=== PATIENT | female | born 1970 | race African-American/Black ===

== ENCOUNTER 2018-01-15 16:36 | Emergency (ER) | payer SELFPAY ==
[2018-01-15 18:03] LABS: #Lymphocytes 1.1 thou/uL (1.20-3.40); #Monocytes 0.8 thou/uL (0.11-0.59); #Neutrophils 6.9 thou/uL (1.40-6.50); %Basophils 0.5 % (0.0-1.0); %Eosinophils 0.5 % (0.0-10.0); %Lymphocytes 12.8 % (21.0-51.0); %Monocytes 8.8 % (0.0-10.0); %Neutrophils 77.4 % (42.0-75.0); Hemoglobin 11.7 g/dL (12.0-16.0); Mean Corpuscular HGB CONC 33.6 g/dL (32.0-36.0); Mean Corpuscular Hemoglobin 29.8 pg (27.0-31.0); Mean Corpuscular Volume 88.7 fl (81.0-99.0); Mean Platelet Volume 7.7 fL (7.4-10.4); Platelet Count 341 thou/uL (130-400); RBC Distribution Width 15.2 % (11.5-14.5); Red Blood Cell (RBC) Count 3.92 mill/uL (4.20-5.40)
[2018-01-15 18:19] LABS: ALT (SGPT) 11 U/L (8-55); AST (SGOT) 59 U/L (5-34); Albumin 2.4 g/dL (3.5-5.0); Alkaline Phosphatase 226 U/L (40-150); Anion Gap 13 mmol/L (10-20); BUN (Urea Nitrogen) 9 mg/dL (7.0-18.7); Bilirubin, Total 1.2 mg/dL (0.2-1.2); Calc. Creatinine Clearance 0 mL/min (70-130); Calcium 8.4 mg/dL (7.8-10.44); Carbon Dioxide 34 mmol/L (22-29); Chloride 88 mmol/L (98-107); Estimated GFR-MDRD Greater than 90; Globulin 4.9 g/dL (2.4-3.5); Glucose 141 mg/dL (70-105); Lipase 12 U/L (8-78); Protein, Total 7.3 g/dL (6.0-8.3); Sodium 132 mmol/L (136-145)
[2018-01-15 18:38] LABS: Bilirubin Small (Negative); Blood, Urine Negative (Negative); Clarity CLEAR (Clear); Glucose, Urine (Dipstick) Negative (Negative); Leukocyte Small (Negative); Nitrite Negative (Negative); Protein, Urine (Dipstick) Negative (Neg-Trace); Specific Gravity, Urine 1.017 (1.002-1.036)
[2018-01-15 18:40] LABS: Bacteria/HPF None Seen HPF (None Seen); Hyaline Casts/LPF 4-6 HYALINE CAST LPF (0-3 Hyaline); Pathc Cast-AUWi Flag 0.43 (0-2.49); Squamous Epithelial 0-3 HPF (0-3); WBC/HPF 0-3 HPF (0-3)
[2018-01-15 18:46] LABS: Urobilinogen > or = 8.0 mg/dL (0.2-1.0)
== END 2018-01-15 22:05 | disposition home or self-care (01) ==
LOC: ERS 16:36
DX: K66.8 Other specified disorders of peritoneum (principal); K74.60 Unspecified cirrhosis of liver; Z79.899 Other long term (current) drug therapy
CPT/HCPCS: 36415; 80053; 81003; 81015; 82140; 83690; 85025; 99284

== ENCOUNTER 2018-07-22 09:43 | Day surgery (SDC) | payer MEDICAID ==
[2018-07-22 10:02] LABS: #Basophils 0.1 thou/uL (0.0-0.2); #Eosinphils 0.1 thou/uL (0.0-0.7); #Lymphocytes 1.3 thou/uL (1.20-3.40); #Monocytes 0.4 thou/uL (0.11-0.59); #Neutrophils 3.2 thou/uL (1.40-6.50); %Basophils 1.3 % (0.0-1.0); %Eosinophils 2.4 % (0.0-10.0); %Monocytes 8.2 % (0.0-10.0); Hemoglobin 11.1 g/dL (12.0-16.0); Mean Corpuscular Hemoglobin 29.7 pg (27.0-31.0); Mean Corpuscular Volume 92.7 fL (78.0-98.0); Mean Platelet Volume 7.5 fL (7.4-10.4); Platelet Count 202 thou/uL (130-400); RBC Distribution Width 19.5 % (11.5-14.5); Red Blood Cell (RBC) Count 3.75 mill/uL (4.20-5.40); White Blood Cell (WBC) Count 5.2 thou/uL (4.8-10.8)
[2018-07-22 10:11] LABS: INR-International Normal Ratio 1.2; PTT 33.9 SEC (22.9-36.1); Prothrombin Time 15.5 SEC (12.0-14.7)
[2018-07-22 11:19] VITALS: BP 126/87; TEMP 98.3; BMI 21.6
--- NOTE | 2018-07-22 13:00 | ULT ---
LIMITED ABDOMINAL ULTRASOUND: Date 07/22/18 INDICATION: Cirrhosis. Evaluate for possible paracentesis. TECHNIQUE: Tanner scale ultrasound images were submitted of the four quadrants of the abdomen. FINDINGS: There is a minimal to mild amount of ascites present. This is not significant enough for a therapeuti c paracentesis. IMPRESSION: Minimal to mild amount of intra-abdominal peritoneal fluid. The degree of ascites is felt to be limit ed and therefore, a therapeutic paracentesis was not performed. A re-evaluation in 2 weeks may be hel pful to evaluate for worsening ascites. POS: [facility]
== END 2018-07-22 10:55 | disposition home or self-care (01) ==
LOC: ULT 09:43
PROVIDERS: ATTEND Internal Medicine
DX: K74.60 Unspecified cirrhosis of liver (principal); K21.9 Gastro-esophageal reflux disease without esophagitis; Z53.8 Procedure and treatment not carried out for other reasons; Z91.041 Radiographic dye allergy status; Z79.899 Other long term (current) drug therapy
CPT/HCPCS: 36415; 76705; 85025; 85610; 85730